=== PATIENT | female | born 1975 | race Caucasian/White ===

== ENCOUNTER 2016-10-28 17:41 | Emergency (ER) | payer MEDICARE ==
[~2016-10-28] VITALS: Ht 175.3 cm; Wt 81.0 kg
[~2016-10-28 17:41] MED LIST: IBUP-1152 PO; TIZA4TABA PO; TRAM100T2 PO; [UNRECOGNIZED DRUG - CODE] PO
[2016-10-28 17:45] VITALS: BP 114/79; PULSE 81; RESP 18; O2SAT 99
[2016-10-28 18:51] VITALS: BP 113/64; PULSE 71; RESP 13; O2SAT 100
[2016-10-28 19:45] LABS: BASOPHILS % (AUTO) 0.4 % (0-3); EOSINOPHILS % (AUTO) 3.4 % (0-5); MONOCYTES % (AUTO) 6.2 % (4-12); Mean Corpuscular Volume 90.9 fL (81-100); NEUTROPHILS % (AUTO) 50.4 % (40-74); Platelet Count 321 bil/L (150-400)
--- NOTE | 2016-10-28 19:56 | ED.REPORT ---
HPI-Abd Pain F 40 and Over Date of Service Oct 28, 2016 ED Provider: Raffaele Lucero PA-C Deisi is a 40-year-old female with a history of appendectomy, tubal ligation and uterine ablation who presents with chief complaint of right lower quadrant abdominal pain. Patient states that her usual menses ended 2 days ago, but mild cramping has continued since then in the right lower quadrant. She states that the crampy pain intensified today, became comparable to childbirth. Patient states that the pain was worse lying on her right side then lying on her left. Also complains of nausea. Symptoms have resolved somewhat on presentation to the emergency department. Denies vomiting, diarrhea, urinary symptoms, vaginal bleeding/discharge, other medical conditions or surgical history. Nursing Notes Stated Complaint: LOWER RT ABD PAIN Chief Complaint: Female Abdominal Pain Nursing Notes Reviewed: Yes Allergies: Coded Allergies: carbamazepine (Verified Allergy, Unknown, 07/20/14) morphine (Verified Adverse Reaction, Intermediate, nausea and vomiting, 09/01) Scheduled IBUPROFEN-Expunged Drug, Do Not Renew! (IBUPROFEN-Expunged Drug, Do Not Renew!) 800 Mg Tablet 800 MG PO TID PRN INSTRUCTED TO STOP Tizanidine-Expunged Drug, Do Not Renew! (Tizanidine-Expunged Drug, Do Not Renew! ) 4 Mg Tablet 4 MG PO DAILY Scheduled PRN Phenazopyridine-Expunged Drug, Do Not Renew! (Pyridium-Expunged Drug, Do Not Renew!) 100 Mg Tablet 100 MG PO PRN Tramadol-Expunged Drug, Do Not Renew! (Tramadol-Expunged Drug, Do Not Renew!) 100 Mg Tab.sr.24h 50-100 MG PO TID PRN PRN General Time Seen by MD: 19:39 Chief Complaint Abdominal pain Sudden in Onset?: No Past Medical History Past Medical History Denies Past Surgical History Tubal ligation Appendectomy Uterine ablation 2010 Review of Systems General: Denies fever, chills, malaise. HEENT: Denies congestion, headache, sore throat. Respiratory: Denies dyspnea, cough, shortness of breath, wheezing. Cardiovascular: Denies chest pain, palpitations. Gastrointestinal: Denies vomiting, diarrhea, admits abdominal pain. Genitourinary: Denies frequency, urgency, dysuria, hematuria. Denies vaginal bleeding/discharge Otherwise as noted in HPI. Physical Exam General: Well appearing, well developed, well nourished, no acute distress. Head: Atraumatic, normocephalic. Eyes: No scleral icterus or injection. No discharge. Vision grossly intact. ENT: Voice clear, hearing grossly intact. Respiratory: Regular rate and rhythm. Breath sounds present, clear to auscultation and equal bilaterally. Cardiovascular: Regular rate and rhythm, without murmur, gallop or rub. No pedal edema. Gastrointestinal: Mild tenderness along the right inguinal crease without guarding or rebound. Bowel sounds normoactive. No hernia appreciated. Skin: Warm, red and dry. Patient reports "going tanning" today Neurological: Grossly nonfocal. Vital Signs Vital Signs (First) Date Time Temp Pulse Resp B/P Pulse Ox O2 Delivery O2 Flow Rate FiO2 10/28/16 17:45 37.2 81 18 114/79 99 Room Air Initial VS: Reviewed, Vital signs normal Interpretation & Diagnostics Lab Results Interpretation Result Diagram: 10/28/16193410/28/161934 Test 10/28/16 18:52 10/28/16 19:35 Hold Urine Received (Received) White Blood Count 7.1th/mm3 (3.8-10.1) Red Blood Count 4.27mil/mm3 (3.90-5.20) Hemoglobin 12.8g/dL (12.0-15.6) Hematocrit 38.8% (35.0-46.0) Mean Corpuscular Volume 90.9fL (81-100) Mean Corpuscular Hemoglobin 30.0pg (27.0-35.0) Mean Corpuscular Hemoglobin Concent 33.0% (32.0-37.0) Red Cell Distribution Width 12.5% (12.3-15.4) Platelet Count 321bil/L (150-400) Neutrophils (%) (Auto) 50.4% (40-74) Lymphocytes (%) (Auto) 39.3% (14-46) Monocytes (%) (Auto) 6.2% (4-12) Eosinophils (%) (Auto) 3.4% (0-5) Basophils (%) (Auto) 0.4% (0-3) Sodium Level 140mEq/L (134-144) Potassium Level 4.6mEq/L (3.5-5.2) Chloride Level 103mEq/L (97-108) Carbon Dioxide Level 28mmol/L (18-29) Blood Urea Nitrogen 3mg/dL (6-24) Creatinine 0.56mg/dL (0.57-1.00) Estimat Glomerular Filtration Rate 172mL/min (>59) Glucose Level 93mg/dL (60-99) Calcium Level 8.7mg/dL (8.5-10.1) Magnesium Level 2.2mg/dL (1.6-2.6) Total Bilirubin 0.2mg/dL (0.0-1.2) Aspartate Amino Transf (AST/SGOT) 18U/L (0-50) Alanine Aminotransferase (ALT/SGPT) 13U/L (0-32) Alkaline Phosphatase 58U/L (25-150) Total Protein 6.6g/dL (6.4-8.4) Albumin 3.8g/dL (3.4-5.0) Lipase 34U/L (13-60) Hold Tabares Top Tube Received (Received) US Focused non-OB Pelvis PROCEDURE: US PELVIC SONOGRAM WITH TRANSVAG AND DOPPLER INDICATIONS: 40 year-old female with right pelvic pain. History of appendectomy and uterine ablation in 2010. IMPRESSION: No sonographic explanation for right pelvic pain. Incidental dominant 1.5 cm nonhemorrhagic right adnexal follicular cyst. Re-Eval/Medical Decision Med Decision/Clinical Course I discussed this case with Dr. Taylor. This is a 40-year-old female with a history of appendectomy, tubal ligation and uterine ablation who presents with a chief complaint of right lower quadrant abdominal pain. She states that she has experienced mild cramping in her right lower quadrant since her usual menses ended 2 days ago but that today the cramping became quite severe. Pain is largely resolved by presentation to the emergency department. Physical exam is largely benign with only mild right inguinal tenderness, no hernia appreciated. Ultrasound reveals only a 1-1/2 cm ovarian cyst and no evidence of torsion. CBC and CMP are noncontributory. We feel we have ruled out immediately dangerous causes of this pain such as appendicitis, ovarian torsion, ruptured ovarian cyst, incarcerated hernia. Discussed the findings with the patient, we agreed that in light of relatively normal exam, reduce pain and normal ultrasound a period of watchful waiting would be appropriate. Patient feels her pain is reasonably well controlled with [id number] analgesia. Advised primary care follow-up, provided return precautions. Discharge & Departure Primary Impression: Right lower quadrant abdominal pain Disposition: Home Discharge Condition All VS Reviewed: Yes Condition: Stable Patient Instructions: Acute Abdominal Pain (ED) Additional Instructions: Evaluation for right lower quadrant abdominal pain into department. History and physical is initially concerning for a torsed ovary or ovarian cyst. However there is no indication of these on ultrasound. Blood tests are reassuring. While this is not tell us why he had this pain today, we do feel confident that we have eliminated immediately dangerous causes. Considering the generally normal physical examination and tests, I do not see any indication to perform a CT scan at this time. We have agreed that the best course of action is for you to be discharged to home, and return if your pain returns or anything changes. Follow up with your primary care provider to continue investigating the cause of your pain, or return to emergency department for any new or worsening symptoms including increasing abdominal pain , vaginal bleeding/discharge, high fever, repeated vomiting. Referrals: Laly Chiu PA-C (PCP) E[facility]vising Provider for APC: Isaura Taylor MD, Seth PA-C Oct 28, 2016 19:56
[2016-10-28 20:07] LABS: Magnesium 2.2 mg/dL (1.6-2.6)
--- NOTE | 2016-10-28 21:10 | DRSVH ---
PROCEDURE: US PELVIC SONOGRAM WITH TRANSVAG AND DOPPLER INDICATIONS: 40 year-old female with right pelvic pain. History of appendectomy and uterine ablation in 2010. TECHNIQUE: Real-time scanning was performed of the pelvic organs, with image documentation. Additional endovagi nal scanning was necessary due to incomplete visualization of the adnexal and endometrial structures by transabdominal scanning. COMPARISON: [facility], [place], PELVIS SONO TRANSVAGINAL ([facility]), 11/25/2011, 10:22. FINDINGS: Transabdominal scanning: No pathologic free abdominal or pelvic fluid. Endovaginal scanning: Uterus: Uterus is normal in size at 8.2 x 4.4 x 5.6 cm. The endometrium measures 7 mm in combined t hickness. Ovaries: The right ovary measures 4.1 x 2.2 x 2.2 cm, and contains a dominant 1.5 cm follicular cyst. The left ovary measures 3.2 x 2.6 x 1.4 cm. Ovaries demonstrate internal vascular flow on color and pulsed Doppler interrogation. IMPRESSION: No sonographic explanation for right pelvic pain. Incidental dominant 1.5 cm nonhemorrhag ic right adnexal follicular cyst. Dictated by: Yobani Valenzuela M.D. on 10/28/2016 at 21:08 Approved by: Yobani Valenzuela M.D. on 10/28/2016 at 21:08
== END 2016-10-28 22:04 | disposition home or self-care (01) ==
LOC: SED 17:41
DX: R10.31 Right lower quadrant pain (principal); R11.0 Nausea; Z88.8 Allergy status to other drugs, medicaments and biological substances; Z88.5 Allergy status to narcotic agent